=== PATIENT | female | born 1990 | race Caucasian/White ===

== ENCOUNTER 2018-05-21 05:55 | Inpatient (IN) ==
[2018-05-21] MEDS ORDERED: ONDANSETRON 4 MG/2 ML VIAL IV PRN ×2 (06:12→20:17)
[2018-05-21] MEDS ORDERED: BUTORPHANOL 2 MG/ML VIAL IV PRN (06:12)
[2018-05-21] MEDS ORDERED: MEPERIDINE 50 MG/1 ML VIAL IV PRN (06:12)
[2018-05-21 06:30] LABS: Basophils # 0.1 10*3/uL (0.0-0.2); Basophils % 0.9 % (0.0-0.8); Eosinophils # 0.1 10*3/uL (0.0-0.87); Eosinophils % 1.1 % (0.00-10.9); Hemoglobin 11.6 GM/DL (12.0-16.0); Immature Granulocytes % 1.5 %; Immature Granulocytes Absolute 0.19 #; Lymphocytes # 2.7 10*3/uL (1.4-4.0); Mean Corpuscular HGB Conc 32.2 GM/DL (32-36); Mean Corpuscular Hemoglobin 29 PG (27-34); Mean Corpuscular Volume 89.8 FL (87-102); Mean Platelet Volume 11.3 FL (9.6-12.0); Monocytes # 0.9 10*3/uL (0.11-0.8); Monocytes % 6.5 % (1.7-12.7); Platelet Count 185 T/CUMM (130-400); Red Blood Count 4.01 MC/CUMM (3.8-5.5); Red Cell Distribution Width 12.8 % (9.3-17.3)
[2018-05-21] MEDS ORDERED: FAMOTIDINE 20 MG/2 ML VIAL IV SCH (06:30)
[2018-05-21] MEDS: LACTATED RINGERS 1,000 ML IV SCH ×3 (06:30→15:05)
[2018-05-21] MEDS ORDERED: OXYTOCIN/LR 20 UNIT/1,000 ML BAG IV SCH (06:30)
[2018-05-21] MEDS ORDERED: AMPICILLIN INJ 2,000 MG in SODIUM CHLORIDE 0.9% 100 ML IV ONE (06:38)
[2018-05-21] MEDS ORDERED: diphenhydrAMINE 50 MG/1 ML VIAL IV PRN ×2 (07:33)
[2018-05-21] MEDS ORDERED: LACTATED RINGERS 1,000 ML IV ONE (07:33)
[2018-05-21] MEDS ORDERED: PROMETHAZINE 25 MG/1 ML VIAL IM ONE (07:33)
[2018-05-21] MEDS ORDERED: ONDANSETRON 4 MG/2 ML VIAL IV ONE (07:33)
[2018-05-21] MEDS ORDERED: CITRIC ACID/SODIUM CITRATE 30 ML UDCUP PO ONE (07:33)
[2018-05-21] MEDS ORDERED: hydrOXYzine HCL 25 MG/1 ML VIAL IM PRN (07:33)
[2018-05-21] MEDS ORDERED: ePHEDrine 50 MG/ML AMP IV PRN (07:33)
[2018-05-21] MEDS ORDERED: NALOXONE 0.4 MG/ML VIAL IV PRN (07:33)
[2018-05-21] MEDS ORDERED: FAMOTIDINE 20 MG/2 ML VIAL IV ONE (09:00)
[2018-05-21] MEDS: AMPICILLIN INJ 1,000 MG in SODIUM CHLORIDE 0.9% 100 ML IV SCH ×3 (11:10→20:00)
[2018-05-21] MEDS: fentaNYL 2 MCG/ROPIV 0.2% EPID 100 ML EPIDURAL SCH ×2 (11:20→19:15)
[2018-05-21 12:18] LABS: Apearance,Urine CLEAR (Clear); Bilirubin,Urine Negative (Negative); Blood, Urine Negative (Negative); Glucose,Urine (UA) Negative (Negative); Hyaline Casts,Urine 3 /LPF (0-3); Ketones,Urine Negative (Negative); Mucus,Urine Occasional /LPF (Occasional); Nitrite,Urine Negative (Negative); Protein,Urine Negative; Urine Color Yellow (Yellow); Urine Urobilinogen < 2.0 EU/DL (0.2-1.0); WBC,Urine 1 /HPF (0-6)
[2018-05-21] MEDS ORDERED: LIDOCAINE 1% 50 ML VIAL ONE (17:34)
[2018-05-21] MEDS ORDERED: miSOPROStol 200 MCG TABLET ONE (17:34)
[2018-05-21] MEDS ORDERED: METHYLERGONOVINE 0.2 MG/1 ML AMP ONE (17:35)
[2018-05-21] MEDS ORDERED: CARBOPROST TROMETHAMINE 250 MCG/ML AMP IM ONE (17:35)
[2018-05-21] MEDS ORDERED: RHO(D) IMMUNE GLOBULIN 300 MCG SYRINGE IM ONE (20:17)
[2018-05-21] MEDS ORDERED: BENZOCAINE 20%/MENTHOL 0.5% SPRAY 56 GM CAN TOP PRN (20:17)
[2018-05-21] MEDS ORDERED: ACETAMINOPHEN 325 MG TABLET PO PRN (20:17)
[2018-05-21] MEDS ORDERED: DIPH/TET/ACEL PERT BOOSTER VACCINE 0.5 ML VIAL IM ONE (20:17)
[2018-05-21] MEDS ORDERED: BISACODYL 10 MG SUPP RECTAL PRN (20:17)
[2018-05-21] MEDS ORDERED: oxyCODONE/ACETAMINOPHEN 5-325 MG TABLET PO PRN (20:17)
[2018-05-21] MEDS ORDERED: WITCH HAZEL PADS 100/JAR TOP PRN (20:17)
[2018-05-21] MEDS ORDERED: LANOLIN 50% CREAM 0.3 OZ TUBE TOP PRN (20:17)
[2018-05-21] MEDS ORDERED: OXYTOCIN/LR 20 UNIT/1,000 ML BAG IV ONE (20:17)
[2018-05-21] MEDS ORDERED: HYDROCORTISONE 2.5% RECTAL CREAM 30 GM TUBE TOP PRN (20:17)
[2018-05-21] MEDS ORDERED: MEASLES/MUMPS/RUBELLA VACCINE 0.5 ML VIAL SUBCUT ONE (20:17)
[2018-05-21] MEDS: IBUPROFEN 800 MG TABLET PO PRN (22:31)
[2018-05-22] MEDS: oxyCODONE/ACETAMINOPHEN 5-325 MG TABLET PO PRN ×3 (04:41→20:45)
[2018-05-22 05:35] LABS: Basophils # 0.1 10*3/uL (0.0-0.2); Basophils % 0.5 % (0.0-0.8); Eosinophils # 0.2 10*3/uL (0.0-0.87); Hematocrit 28.7 VOL% (35.7-47.0); Immature Granulocytes Absolute 0.15 #; Lymphocytes # 2.1 10*3/uL (1.4-4.0); Lymphocytes % 13.4 % (21.3-54.2); Mean Corpuscular HGB Conc 31.4 GM/DL (32-36); Mean Corpuscular Hemoglobin 28 PG (27-34); Mean Corpuscular Volume 89.4 FL (87-102); Mean Platelet Volume 11.8 FL (9.6-12.0); Monocytes # 0.9 10*3/uL (0.11-0.8); Monocytes % 5.8 % (1.7-12.7); Neutrophils % 78.3 % (38.7-73.9); Platelet Count 143 T/CUMM (130-400); Red Blood Count 3.21 MC/CUMM (3.8-5.5); White Blood Count 15.3 T/CUMM (4-12)
[2018-05-22] MEDS: DOCUSATE SODIUM 100 MG CAPSULE PO SCH ×2 (09:18→20:45)
[2018-05-22] MEDS: IBUPROFEN 800 MG TABLET PO PRN (09:20)
[2018-05-23] MEDS: IBUPROFEN 800 MG TABLET PO PRN ×2 (01:23→07:36)
[2018-05-23 04:31] VITALS: BP 98/57
[2018-05-23] MEDS: oxyCODONE/ACETAMINOPHEN 5-325 MG TABLET PO PRN (07:37)
[2018-05-23] MEDS: DOCUSATE SODIUM 100 MG CAPSULE PO SCH (08:44)
== END 2018-05-23 12:35 | disposition home or self-care (01) | DRG 807 ==
LOC: N.LDOUT 05:55 → N.LD 05:58 → N.OB 22:45
PROVIDERS: ADMIT Obstetrics & Gynecology; ATTEND Obstetrics & Gynecology

== ENCOUNTER 2020-12-10 11:00 | Inpatient (IN) ==
[2020-12-10 12:06] LABS: Basophils # 0.1 10*3/uL (0.0-0.2); Basophils % 0.6 % (0.0-0.8); Eosinophils # 0.1 10*3/uL (0.0-0.87); Eosinophils % 0.9 % (0.00-10.9); Hematocrit 34.8 VOL% (35.7-47.0); Hemoglobin 10.8 GM/DL (12.0-16.0); Immature Granulocytes % 1.6 %; Immature Granulocytes Absolute 0.18 #; Lymphocytes # 2.4 10*3/uL (1.4-4.0); Lymphocytes % 21.5 % (21.3-54.2); Mean Corpuscular Volume 89.2 FL (87-102); Mean Platelet Volume 11.4 FL (9.6-12.0); Monocytes % 8.2 % (1.7-12.7); Neutrophils % 67.2 % (38.7-73.9); Platelet Count 181 T/CUMM (130-400); White Blood Count 11.2 T/CUMM (4-12)
[2020-12-10] MEDS ORDERED: MEPERIDINE 50 MG/1 ML VIAL IV PRN (12:06)
[2020-12-10] MEDS ORDERED: ONDANSETRON 4 MG/2 ML VIAL IV PRN (12:06)
[2020-12-10] MEDS ORDERED: BUTORPHANOL 2 MG/ML VIAL IV PRN (12:06)
[2020-12-10] MEDS ORDERED: AMPICILLIN INJ 2,000 MG in SODIUM CHLORIDE 0.9% 100 ML IV ONE (12:13)
[2020-12-10] MEDS ORDERED: OXYTOCIN/LR 20 UNIT/1,000 ML BAG IV SCH (12:30)
[2020-12-10] MEDS ORDERED: LACTATED RINGERS 1,000 ML IV SCH (12:30)
[2020-12-10] MEDS ORDERED: hydrOXYzine HCL 25 MG/1 ML VIAL IM PRN (13:03)
[2020-12-10] MEDS ORDERED: ePHEDrine 50 MG/ML VIAL IV PRN (13:03)
[2020-12-10] MEDS ORDERED: LACTATED RINGERS 1,000 ML IV ONE (13:03)
[2020-12-10] MEDS ORDERED: CITRIC ACID/SODIUM CITRATE 30 ML UDCUP PO ONE (13:03)
[2020-12-10] MEDS ORDERED: diphenhydrAMINE 50 MG/1 ML VIAL IV PRN ×2 (13:03)
[2020-12-10] MEDS ORDERED: FAMOTIDINE 20 MG/2 ML VIAL IV ONE (13:03)
[2020-12-10] MEDS ORDERED: NALOXONE 0.4 MG/ML VIAL IV PRN (13:03)
[2020-12-10] MEDS ORDERED: fentaNYL 2 MCG/ROPIV 0.2% EPID 100 ML EPIDURAL SCH (13:30)
[2020-12-10] MEDS: AMPICILLIN INJ 1,000 MG in SODIUM CHLORIDE 0.9% 100 ML IV SCH ×2 (16:29→20:03)
[2020-12-10] MEDS ORDERED: METHYLERGONOVINE 0.2 MG/1 ML AMP ONE (21:41)
[2020-12-10] MEDS ORDERED: miSOPROStoL 200 MCG TABLET ONE (21:41)
[2020-12-10] MEDS ORDERED: CARBOPROST TROMETHAMINE 250 MCG/ML AMP IM ONE (21:41)
[2020-12-10] MEDS ORDERED: TRANEXAMIC ACID 1,000 MG/10 ML VIAL ONE (21:41)
[2020-12-10] MEDS ORDERED: SODIUM CHLORIDE 0.9% 0 ML IV ONE (21:42)
[2020-12-10] MEDS ORDERED: LIDOCAINE 1% 50 ML VIAL ONE (21:42)
[2020-12-11 00:05] LABS: Cord Arterial Blood HCO3 24.8 MMOL/L
[2020-12-11 00:08] LABS: Cord Venous Blood HCO3 23.9 MMOL/L; Cord Venous Blood PCO2 44.1 MMHG; Cord Venous Blood PO2 26.1 MMHG
[2020-12-11] MEDS ORDERED: MEASLES/MUMPS/RUBELLA VACCINE 0.5 ML VIAL SUBCUT ONE (00:13)
[2020-12-11] MEDS ORDERED: ACETAMINOPHEN 325 MG TABLET PO PRN (00:13)
[2020-12-11] MEDS ORDERED: WITCH HAZEL PADS 100/JAR TOP PRN (00:13)
[2020-12-11] MEDS ORDERED: BISACODYL 10 MG SUPP RECTAL PRN (00:13)
[2020-12-11] MEDS ORDERED: ONDANSETRON 4 MG/2 ML VIAL IV PRN (00:13)
[2020-12-11] MEDS ORDERED: HYDROCORTISONE 2.5% RECTAL CREAM 30 GM TUBE TOP PRN (00:13)
[2020-12-11] MEDS ORDERED: OXYTOCIN/LR 20 UNIT/1,000 ML BAG IV ONE (00:13)
[2020-12-11] MEDS ORDERED: RHO(D) IMMUNE GLOBULIN 300 MCG SYRINGE IM ONE (00:13)
[2020-12-11] MEDS ORDERED: oxyCODONE/ACETAMINOPHEN 5-325 MG TABLET PO PRN (00:13)
[2020-12-11] MEDS ORDERED: BENZOCAINE 20%/MENTHOL 0.5% SPRAY 56 GM CAN TOP PRN (00:13)
[2020-12-11] MEDS ORDERED: DIPH/TET/ACEL PERT BOOSTER VACCINE 0.5 ML VIAL IM ONE (00:13)
[2020-12-11] MEDS ORDERED: LANOLIN 50% CREAM 0.3 OZ TUBE TOP PRN (00:13)
[2020-12-11] MEDS: IBUPROFEN 800 MG TABLET PO PRN ×3 (01:44→19:47)
[2020-12-11] MEDS: oxyCODONE/ACETAMINOPHEN 5-325 MG TABLET PO PRN ×3 (03:42→21:55)
[2020-12-11 08:14] LABS: Basophils # 0.1 10*3/uL (0.0-0.2); Basophils % 0.4 % (0.0-0.8); Eosinophils # 0.1 10*3/uL (0.0-0.87); Eosinophils % 0.5 % (0.00-10.9); Hematocrit 32.1 VOL% (35.7-47.0); Hemoglobin 10.1 GM/DL (12.0-16.0); Immature Granulocytes % 0.8 %; Immature Granulocytes Absolute 0.12 #; Lymphocytes # 2.3 10*3/uL (1.4-4.0); Lymphocytes % 15.1 % (21.3-54.2); Mean Corpuscular HGB Conc 31.5 GM/DL (32-36); Mean Corpuscular Volume 88.2 FL (87-102); Mean Platelet Volume 10.9 FL (9.6-12.0); Neutrophils % 77.2 % (38.7-73.9); Platelet Count 146 T/CUMM (130-400); Red Blood Count 3.64 MC/CUMM (3.8-5.5); Red Cell Distribution Width 20.3 % (9.3-17.3); White Blood Count 14.9 T/CUMM (4-12)
[2020-12-11] MEDS: DOCUSATE SODIUM 100 MG CAPSULE PO SCH ×3 (09:28→22:16)
[2020-12-12 07:44] VITALS: BP 114/67
[2020-12-12] MEDS: IBUPROFEN 800 MG TABLET PO PRN (09:08)
[2020-12-12] MEDS: DOCUSATE SODIUM 100 MG CAPSULE PO SCH (09:09)
== END 2020-12-12 14:00 | disposition home or self-care (01) | DRG 807 ==
LOC: N.LDOUT 11:00 → N.LD 11:02 → N.OB 12-11 03:05
PROVIDERS: ADMIT Obstetrics & Gynecology; ATTEND Obstetrics & Gynecology